=== PATIENT | female | born 2005 | race Native Hawaiian/Other Pacific Islander ===

== ENCOUNTER 2023-03-16 05:25 | Emergency (ER) | payer MEDICAID, OTHER ==
[~2023-03-16] VITALS: Ht 147 cm; Wt 82.5 kg
[2023-03-16] MEDS ORDERED: CEPHALEXIN 250 MG CAPSULE PO STA (06:16)
[2023-03-16] MEDS ORDERED: DOXY100T2 PO (06:16)
[2023-03-16] MEDS ORDERED: CEPH500T PO (06:16)
--- NOTE | 2023-03-16 06:16 | ED Integumentary General ---
General Chief Complaint: Skin/Wound Problems Stated Complaint: BOIL ON RIGHT LEG Nursing Triage Note: PATIENT VERBALIZED RT LOWER LEG "BOIL" STATES YESTERDAY SHE OPENED IT AND GOT SMALL AMOUNT OF PUS. STATES WENT TO WORK AND HAD THE NURSE AT WORK LOOK AT IT. PATIENT STATES SHE WAS GIVEN AN OINTMENT TO PUT ON THE WOUND Source: patient Exam Limitations: no limitations History of Present Illness Date Seen by Provider: Mar 16, 2023 Time Seen by Provider: 05:45 Initial Comments 17-year-old female with no pertinent past medical history coming in due to concerns for an infection on her right leg. Started yesterday morning, she squeezed it, got a little bit of drainage from it. The redness spread this morning and is hurting more so she wanted to be seen in the ER. Tetanus is up-to-date within the past year. She does not believe that was any type of bite or sting, she is unsure of how this started. She is currently menstruating. Allergies and Home Medications Allergies Coded Allergies: No Known Drug Allergies (Unverified , 03/16/23) Patient Home Medication List Home Medication List Reviewed: Yes Review of Systems Review of Systems Constitutional: No fever EENTM: no symptoms reported Respiratory: no symptoms reported Cardiovascular: no symptoms reported Gastrointestinal: no symptoms reported Genitourinary: no symptoms reported Musculoskeletal: no symptoms reported Skin: see HPI Psychiatric/Neurological: No Symptoms Reported Endocrine: No Symptoms Reported Past Vvcavem-Hktcva-Zshxyo Hx Patient Social History Tobacco Use?: No Use of E-Cig and/or Vaping dev: No Substance use?: No Alcohol Use?: No Immunizations Up To Date Influenza Vaccine Up-to-Date: No; Not Current Physical Exam Vital Signs Vital Signs - First Documented 03/16/23 06:00 Pulse 98 Resp 18 B/P (MAP) 151/105 (120) Pulse Ox 97 O2 Delivery Room Air Capillary Refill : Less Than 3 Seconds General Appearance: WD/WN, no apparent distress HEENT: PERRL/EOMI, normal ENT inspection, pharynx normal Neck: non-tender, full range of motion, supple, normal inspection Cardiovascular: regular rate, rhythm, no edema, no murmur Respiratory: chest non-tender, lungs clear, normal breath sounds, no respiratory distress, no accessory muscle use Gastrointestinal: normal bowel sounds, non tender, soft; No distended, No guarding, No rebound Back: normal inspection, no CVA tenderness Extremities: normal range of motion, non-tender, no pedal edema, no calf tenderness, normal capillary refill, other (Right lower extremity with a 4 inch in diameter area of induration and erythema, no significant fluctuance noted) Neurologic/Psychiatric: no motor/sensory deficits, alert, normal mood/affect Skin: warm/dry, rash Procedures/Interventions I&D : Progress Single stab incision with a 21-gauge needle to the right mid calf anteriorly with a minimal amount of purulent drainage. Patient tolerated the procedure well Progress/Results/Core Measures Results/Orders Vital Signs/I&O 03/16/23 06:00 Pulse 98 Resp 18 B/P (MAP) 151/105 (120) Pulse Ox 97 O2 Delivery Room Air Blood Pressure Mean: 120 Progress Progress Note : Progress Note 17-year-old female with above history coming in due to concerns for an abscess. ABCs were intact and vitals were stable on presentation. Tetanus is up-to-date. Physical exam with obvious cellulitis secondary to an abscess that she partially drained. I did not feel any obvious fluctuance, did not ultrasound to see if there is any residual purulent drainage. There was a small amount on ultrasound so I did a single stab incision to open up the wound slightly more with a needle and got a minimal amount of purulent drainage afterwards with her tolerating this well. We will start her on antibiotics with her first dose be ing given here. Departure Impression Primary Impression: Cellulitis and abscess of right leg Disposition: 01 HOME, SELF-CARE Condition: Stable Departure-Patient Inst. Decision time for Depature: 06:25 Referrals: NO,LOCAL PHYSICIAN (PCP/Family) Primary Care Physician Patient Instructions: Cellulitis (Skin Infection), Adult ED Add. Discharge Instructions: You did have an abscess in your leg, now that the drainage is gone, it can heal easier. You will need to be on antibiotics for the skin infection secondary to this for the next 10 days. It will be 2 different antibiotics, please be sure to finish these. Take ibuprofen and or Tylenol as needed for pain. Follow-up with your doctor in the next 2 to 3 days if things are not improving. Scripts Doxycycline Hyclate (Doxycycline Hyclate) 100 Mg Tablet 100 MG PO BID for 10 Days, #20 TAB 0 Refills Prov: DINA CALLE MD 03/16/23 Cephalexin (Cephalexin) 500 Mg Tablet 500 MG PO QID for 10 Days, #40 TAB Prov: DINA CALLE MD 03/16/23 Work/School Note: Work Release Form Date Seen in the Emergency Department: Mar 16, 2023 Return to Work: Mar 17, 2023 Restrictions: No Restrictions DINA CALLE MD Mar 16, 2023 06:16
[2023-03-16 06:25] VITALS: BP 140/98
[2023-03-16] MEDS ORDERED: IBUPROFEN 600 MG TABLET PO ONE (06:30)
== END 2023-03-16 06:31 | disposition home or self-care (01) ==
LOC: ER 05:29
DX: L03.115 Cellulitis of right lower limb (principal); L02.415 Cutaneous abscess of right lower limb; Z28.310 Unvaccinated for COVID-19
CPT/HCPCS: 99283

== ENCOUNTER 2023-03-17 18:48 | Emergency (ER) | payer MEDICAID ==
[~2023-03-17] VITALS: Ht 147 cm; Wt 82.5 kg
[~2023-03-17 18:48] MED LIST: CEPH500T PO; DOXY100T2 PO
[2023-03-17 19:00] VITALS: BP 109/89
--- NOTE | 2023-03-17 19:15 | ED Integumentary General ---
General Chief Complaint: Skin/Wound Problems Stated Complaint: RECHECK BOIL ON RIGHT LEG Nursing Triage Note: WANTS WORK NOTE FOR 2 DAYS, WOUND RECHECKED. STATES IS MORE PURPLE THAN PREVIOUS VISIT. Source: patient Exam Limitations: no limitations (DINA SANTANA) History of Present Illness Date Seen by Provider: Mar 17, 2023 Time Seen by Provider: 19:12 Initial Comments Patient is a 17-year-old female presents ED for wound evaluation. She was seen here yesterday had a abscess drained to her right lower leg. She has taken 1 day worth of doxycycline and Keflex. She was at work today and they sent her home secondary to a infection of her right leg. She states she does have intermittent pain but believes the redness and swelling around the lesion is improving. She denies fever, chills, nausea, vomiting, diarrhea. She is requesting a work note for a few days to allow healing and then she can go back to work. She states the wound is draining liquid. Reports some mild purulent drainage (DINA SANTANA) Allergies and Home Medications Allergies Coded Allergies: No Known Drug Allergies (Unverified , 03/16/23) Patient Home Medication List Home Medication List Reviewed: Yes (DINA SANTANA) Cephalexin (Cephalexin) 500 Mg Tablet, 500 MG PO QID Prescribed by: DINA CALLE on 03/16/23 0616 Doxycycline Hyclate (Doxycycline Hyclate) 100 Mg Tablet, 100 MG PO BID Prescribed by: DINA CALLE on 03/16/23 0616 Review of Systems Review of Systems Constitutional: No chills, No diaphoresis, No malaise, No weakness EENTM: No hearing loss, No ear pain, No blurred vision Respiratory: No cough, No dyspnea on exertion Cardiovascular: No chest pain Gastrointestinal: No abdominal pain, No diarrhea, No melena, No vomiting Genitourinary: No decreased output, No discharge Musculoskeletal: No back pain, No joint pain, No joint swelling, No muscle pain Skin: change in color Psychiatric/Neurological: Denies Anxiety, Denies Depressed (DINA SANTANA) All Other Systems Reviewed Negative Unless Noted: Yes (DINA SANTANA) Past Gclcqgh-Pbmgmm-Yedlhs Hx Patient Social History Tobacco Use?: No Substance use?: No Alcohol Use?: No Pt feels they are or have been: No (DINA SANTANA) Past Medical History Surgery/Hospitalization HX: DENIES (DINA SANTANA) Physical Exam Vital Signs Vital Signs - First Documented 03/17/23 19:00 Temp 36.3 Pulse 82 Resp 18 B/P (MAP) 109/89 (96) Pulse Ox 99 O2 Delivery Room Air (ALVARO,INOCENCIO [employer] DO) Vital Signs Capillary Refill : (DINA SANTANA) General Appearance: WD/WN, no apparent distress HEENT: PERRL/EOMI, normal ENT inspection, TMs normal, pharynx normal Neck: non-tender, full range of motion, supple Cardiovascular: regular rate, rhythm, no edema, no gallop, no JVD Respiratory: chest non-tender, lungs clear, normal breath sounds, no respiratory distress Gastrointestinal: normal bowel sounds, non tender, soft Back: normal inspection, no CVA tenderness Extremities: normal range of motion, no pedal edema Neurologic/Psychiatric: quality lab assoc II-XII nml as tested, no motor/sensory deficits, alert, normal mood/affect Skin: other (Draining wound to right lower mid tib-fib medial side. Localized erythema. Mild purulent drainage. No tenderness to palpate. No erythematous streaking) (DINA SANTANA) Progress/Results/Core Measures Results/Orders Vital Signs/I&O 03/17/23 19:00 Temp 36.3 Pulse 82 Resp 18 B/P (MAP) 109/89 (96) Pulse Ox 99 O2 Delivery Room Air (ALVARO,INOCENCIO K DO) Blood Pressure Mean: 96 Departure Communication (PCP) Healing wound to right medial tib-fib/calf . Very minimal active drainage. Currently on Keflex and doxycycline. Very minimal tenderness. No erythematous streaking. This appears to be healing. She has only taken 1 days worth of Keflex and doxycycline. Provided work note for a few days. Continue with antibiotics. If increased redness or swelling to return back to ED. No obvious fluctuant mass. She states pain is improving. She had a incision and drainage performed yesterday. Follow-up your PCP in 2 days for reevaluation. Return precaution were discussed. Vital signs stable (DINA SANTANA) Impression Primary Impression: Encounter for evaluation of wound Disposition: 01 HOME, SELF-CARE Condition: Stable Departure-Patient Inst. Decision time for Depature: 19:14 (DNIA SANTANA) [facility]errals: [facility],LOCAL PHYSICIAN (PCP) Primary Care Physician Patient Instructions: Wound Care (DC) Work/School Note: Work Release Form Date Seen in the Emergency Department: Mar 17, 2023 Return to Work: Mar 22, 2023 ATTENDING PHYSICIAN NOTE: I WAS PHYSICALLY PRESENT ER PHYSICIAN, BUT I WAS NOT INVOLVED IN ANY DECISION MAKING OR ANY CARE OF THIS PATIENT, AND I AM NOT COLLABORATING PHYSICIAN. (INOCENCIO JOHN DO) DINA SANTANA Mar 17, 2023 19:15 INOCENCIO JOHN DO Mar 18, 2023 06:06
== END 2023-03-17 19:16 | disposition home or self-care (01) ==
LOC: EDUNIT# 18:48 → ER 18:50
DX: Z48.01 Encounter for change or removal of surgical wound dressing (principal)
CPT/HCPCS: 99281

== ENCOUNTER 2023-07-09 18:03 | Emergency (ER) | payer OTHER, MEDICAID ==
[~2023-07-09] VITALS: Ht 147.3 cm; Wt 80.7 kg
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
[2023-07-09 18:27] VITALS: BP 131/86
[2023-07-09] MEDS ORDERED: IBUPROFEN 600 MG TABLET PO ONE (18:30)
== END 2023-07-09 18:27 | disposition home or self-care (01) ==
LOC: EDUNIT# 18:03 → ER 18:06
DX: M25.512 Pain in left shoulder (principal); V43.52XA Car driver injured in collision with other type car in traffic accident, initial encounter; Y92.410 Unspecified street and highway as the place of occurrence of the external cause
CPT/HCPCS: 99283